=== PATIENT | male | born 1975 | race Two or more races ===

== ENCOUNTER 2017-11-05 22:32 | Emergency (ER) | payer OTHER ==
[~2017-11-05] VITALS: Ht 175.3 cm; Wt 106.6 kg
[2017-11-06] MEDS ORDERED: NASONEX17 GM TOP (02:46)
[2017-11-06] MEDS ORDERED: AUGMENTIN PO (02:46)
[2017-11-06] MEDS ORDERED: CLARITIN-D 241 EACH PO (02:46)
[2017-11-06] MEDS ORDERED: ACIDOPHILUS1 EAC3 PO (02:46)
== END 2017-11-06 03:53 | disposition home or self-care (01) ==
LOC: ER 22:32 → EDBD 22:46 → ER 11-06 03:53
DX: J32.8 Other chronic sinusitis (principal)